=== PATIENT | female | born 1995 | race Caucasian/White ===

== ENCOUNTER 2021-05-10 19:51 | Emergency (ER) | payer OTHER ==
[~2021-05-10] VITALS: Ht 152.4 cm; Wt 63.5 kg
[2021-05-10 20:19] VITALS: BP 121/74
--- NOTE | 2021-05-10 20:22 | NUR ---
TO LOBBY A/W BED AMBULATORY
== END 2021-05-10 23:41 | disposition left against medical advice (07) ==
LOC: MED 19:51
DX: R51.9 Headache, unspecified (principal); Z53.21 Procedure and treatment not carried out due to patient leaving prior to being seen by health care provider